=== PATIENT | male | born 1990 | race Caucasian/White ===

== ENCOUNTER 2021-01-20 14:02 | Emergency (ER) | payer MEDICAID ==
[~2021-01-20] VITALS: Ht 172.7 cm; Wt 66.0 kg
[2021-01-20 14:08] VITALS: BP 120/58
[2021-01-20] MEDS ORDERED: LIDOCAINE HCL/PF 1% 10 MG/ML 5ML VIAL INFIL ONE (16:15)
[2021-01-20] MEDS ORDERED: BACITRACIN ZINC OINT UDPKT TOP ONE (16:15)
[2021-01-20] MEDS ORDERED: IBUPROFEN 600MG TABLET PO NR (16:52)
[2021-01-20] MEDS ORDERED: LORAZEPAM 0.5MG TABLET PO NR (17:00)
[2021-01-20] MEDS ORDERED: IBUP-2029 PO (17:42)
== END 2021-01-20 18:12 | disposition home or self-care (01) ==
LOC: ER 14:02
DX: S61.011A Laceration without foreign body of right thumb without damage to nail, initial encounter (principal); X58.XXXA Exposure to other specified factors, initial encounter; Y93.89 Activity, other specified; Y92.89 Other specified places as the place of occurrence of the external cause; Y99.8 Other external cause status
CPT/HCPCS: 12001; 73140; 99283; J3490